=== PATIENT | female | born 1995 | race Caucasian/White ===

== ENCOUNTER → 2018-04-28 16:17 | Outpatient (CLI) | payer OTHER, SELFPAY ==
[2018-04-28 17:48] LABS: CRP 2.93 mg/L (0.0-3.0); Rheumatoid Factor < 10.0 IU/mL (<15)
[2018-04-28 17:52] LABS: Erythrocyte Sedimentation Rate 8 mm/hr (0-20)
[2018-05-01 13:38] LABS: CCP IgG Antibodies 7 units (0-19)
== END ==
PROVIDERS: Family Provider Nurse Practitioner; PCP Nurse Practitioner; Visit Provider Nurse Practitioner
DX: M34.9 Systemic sclerosis, unspecified (principal); M25.50 Pain in unspecified joint
CPT/HCPCS: 36415; 85652; 86140; 86200; 86431

== ENCOUNTER → 2020-09-04 | Outpatient (CLI) | payer OTHER, SELFPAY ==
[2018-12-10 14:04] VITALS: BMI 34.4
[2020-09-07 03:06] LABS: Chlamydia By Nucleic Acid AMP Negative (Negative)
[2020-09-07 12:31] LABS: Gonococcus By Nucleic Acid AMP Negative (Negative)
== END | disposition home or self-care (01) ==
LOC: LABSPEC 16:57
PROVIDERS: Visit Provider Obstetrics & Gynecology
DX: N76.0 Acute vaginitis (principal); Z11.3 Encounter for screening for infections with a predominantly sexual mode of transmission
CPT/HCPCS: 87491; 87591

== ENCOUNTER 2020-10-27 17:10 | Emergency (ER) | payer OTHER, SELFPAY ==
[2018-12-10 14:04] VITALS: BMI 34.4
[2020-10-27 17:13] VITALS: BP 132/95; PULSE 88; RESP 12; TEMP 36.8; O2SAT 94; BMI 35.4
--- NOTE | 2020-10-27 17:20 | EKG12_ITS ---
Test Reason : SYNCOPE Blood Pressure : / mmHG Vent. Rate : 086 BPM Atrial Rate : 086 BPM P-R Int : 168 ms QRS Dur : 088 ms QT Int : 354 ms P-R-T Axes : 046 048 014 degrees QTc Int : 423 ms Normal sinus rhythm Normal ECG Confirmed by EVA BERG, NANCY ([id number]), supervising editor news reel LEOLA BLANCO ([id number]) on 10/31/2020 11:22:05 AM Referred By: /CG Confirmed By:NANCY VELASQUEZ MD
[2020-10-27 17:32] LABS: Absolute Lymphocyte Count 2.87 X10^3/uL (0.83-4.51); Absolute Neutrophil Count 4.3 X10^3/uL (2.0-7.7); Basophil# 0.08 X10^3/uL; Eosinophil# 0.21 X10^3/uL; Eosinophils% 2.5 % (0-5); Hematocrit 43.9 % (37-47); Hemoglobin 15.4 g/dL (12.0-15.0); Lymphocyte # 2.87 X10^3/ul (4.0); Lymphocyte % 34.5 % (19-41); Mean Corp Hgb Conc 35.1 g/dL (32-36); Mean Corpuscular Hgb 35.2 pg (27.0-32.0); Mean Corpuscular Volume 100.2 fL (81-99); Monocyte# 0.87 X10^3/uL; Monocyte% 10.5 % (0-10); NRBC Flagged by Analyzer 0 % (0-5); Neutrophil # 4.26 X10^3/uL (2.7-7.7); Neutrophil % 51.1 % (47-70); Platelet Count 231 K/mm3 (150-450); RBC Distribution Width CV 11.8 % (11.6-14.6); RBC Distribution Width SD 43.8 fl (35.1-43.9); Red Blood Count 4.38 M/mm3 (4.2-5.4); White Blood Count 8.3 K/mm3 (4.4-11.0)
--- NOTE | 2020-10-27 17:41 | CT_ITS ---
STUDY: CT BRAIN WITHOUT CONTRAST REASON FOR EXAM: Female, 25 years old. SYNCOPAL EPISODE @ WORK RADIATION DOSAGE (If Supplied By Facility): CTDIvol = ( 44.99 ) mGy, DLP = ( 779.24 ) mGycm TECHNIQUE: Transaxial CT imaging of the brain was performed without administration of intravenous contrast material. Individualized dose optimization techniques were used for this CT. COMPARISON: No relevant priors. FINDINGS: Normal soft tissue structures. Normal calvarium. Normal size ventricles and extra-axial spaces for the patient''s age. Normal white matter tracts of the cerebral hemispheres. Normal basal ganglia and thalami. Normal brainstem. Normal cerebellum. There is no intracranial hemorrhage. There are no findings of an acute ischemic infarction. Normal visualized paranasal sinuses. CT/Brain/Head without Contrast IMPRESSION: Normal unenhanced CT scan of the brain. Electronically Signed: Jose Dodge MD at 18:10 EST , Service support ,
--- NOTE | 2020-10-27 17:49 | ED.VIS.GEN ---
History of Present Illness Chief Complaint: Syncope Informant: Patient Onset: Today Narrative: Is a 25-year-old female that denies any past medical history presenting after syncopal episode. Patient apparently was walking into work when she passed out. Patient does not remember the event and does not remember driving to work either. She does not remember approximately 15 to 20 minutes prior to the episode. Patient remembers pulling out of a driveway and talking twice her which she states she always does and then does not remember anything after that. Apparently patient was walking into work when she just passed out. She told coworkers that she was feeling faint. Not clear if she hit her head when she fell. Patient currently denies any headache. She states she is feeling fine earlier today and feels fine now. She notes that she has been having some intermittent diarrhea for the past few days. She states she is having about 1 episode of diarrhea a day which she states is abnormal for her she is normally constipated. She denies any black or blood in her stool. She also know she is been having nosebleeds the past few days. She states she is had 7 or so large nosebleeds out of the right nares. She denies any bleeding of her gums when she brushes her teeth. She denies any history of any bleeding problems. She does not get regular menstrual periods because she has an Implanon. She intermittently takes a diet pill that she thinks starts with a Q. no other complaints at this time. Past Medical History - Allergies and Home Meds Allergies/Adverse Reactions: Allergies No Known Allergies Allergy (Verified 10/27/20 17:12) Primary Care Physician: Kirstin Leija DO [Primary Care Provider] - Past Medical History: None Surgical History: noncontributory Lives: Spouse/ Significant Other, With Family Smoking Status: Current every day smoker Review of Systems General: Reports: - - Syncope. Denies: Chills, Fever, Sweats Eyes: Denies: Visual changes - bilaterally, Diplopia ENT: Denies: Rhinorrhea, Sore throat Cardiovascular: Denies: Chest pain, Palpitations Respiratory: Denies: Dyspnea, Cough, Dyspnea on exertion Gastrointestinal: Denies: Abdominal pain, Nausea, Vomiting, Diarrhea, Melena, Hematochezia Genitourinary: Denies: Dysuria, Hematuria, Frequency Musculoskeletal: Denies: Back pain, Extremity Pain Skin: Denies: Rash, Wounds Neurological: Denies: Headache, Weakness, Numbness Physical Exam Vital Signs/Narrative: Vital Signs Temp Pulse Resp BP Pulse Ox 10/27/20 17:13 98.3 F 88 12 132/95 H 94 Inital Vital Signs reviewed: Yes General: Well nourished, Well developed, No Acute Distress Head: Normocephalic, Atraumatic Eyes: Perrl, EOMI ENT: Moist mucous membranes, No rhinorrhea Neck: Supple, Nontender Cardiovascular: Regular rate, Regular rhythm, No murmurs Respiratory: No distress, CTA bilaterally, Chest nontender Abdomen: Soft, Nontender, Nondistended, Normal bowel sounds Back: Nontender, Normal Inspection Extremities: Nontender, No edema Skin: Normal color, No rash Neurological: Alert, Oriented x3, Cranial nerves II-XII grossly intact, Normal Strength, Normal Sensation, Normal Gait, - - Appears to have retrograde amnesia for approximately 20 minutes before this episode. Psychological: Normal affect, Normal Mood Diagnostic/Tx/Re-eval Chest X-Ray - ED: 1 View, Read by ED Physician, Read by Radiologist, No Acute Disease Clinical Impression(s) from Imaging Studies Brain CT 10/27/20 17:41 IMPRESSION: Normal unenhanced CT scan of the brain. Electronically Signed: Jose Dodge MD at 18:10 EST , Service support , Chest X-Ray 10/27/20 17:50 IMPRESSION: Normal x-ray examination of the chest. Electronically Signed: Jose Dodge MD at 18:41 EST , Service support , Laboratory Data 10/27/20 10/27/20 10/27/20 16:56 16:56 17:31 WBC 8.3 RBC 4.38 Hgb 15.4 H Hct 43.9 MCV 100.2 H MCH 35.2 H MCHC 35.1 RDW Std Deviation 43.8 RDW Coeff of Nichelle 11.8 Plt Count 231 MPV 12.0 Immature Gran % (Auto) 0.400 Neut % (Auto) 51.1 Lymph % (Auto) 34.5 [place] % (Auto) 10.5 H Eos % (Auto) 2.5 Baso % (Auto) 1.0 Absolute Neuts (auto) 4.3 Absolute Lymphs (auto) 2.87 Nucleated RBC % 0 Sodium 139 Potassium 3.9 Chloride 108 H Carbon Dioxide 22.0 Anion Gap 9 BUN 8 Creatinine 0.66 Estim Creat Clear Calc 96.62 Est GFR (MDRD) Af Amer 138 Est GFR (MDRD) Non-Af 114 BUN/Creatinine Ratio 12.2 Glucose 95 Calcium 8.7 Troponin I < 0.015 Urine Color Yellow Urine Clarity Clear Urine pH 7.0 Ur Specific Corn 1.005 Urine Protein Negative Urine Glucose (UA) Normal Urine Ketones Negative Urine Occult Blood Negative Urine Nitrite Negative Urine Bilirubin Negative Urine Urobilinogen Normal Ur Leukocyte Esterase Negative Urine RBC 0 SEEN Urine WBC 0 SEEN Ur Squamous Epith Cells 0-5 SEEN Urine Bacteria 0 SEEN Urine Mucus 0 SEEN Urine Test Negative - Rhythm Strip Rhythm Strip: Sinus Rhythm Rate: 86 Ectopy: None - EKG Initial EKG Interpretation: Sinus Rhythm, No Acute Injury Pattern, - - Rated by emergency medicine physician Normal axis Normal intervals Normal ST segments - Medical Decision Making Patient is evaluated for syncopal episode. It occurred when she was walking into work. Patient does not remember it and also does not remember driving to work. She currently has no complaints. She states that she used to get lightheaded when she was anemic during her pregnancies but not had anything since. She notes that she has had some diarrhea over the past few days.Patient's work-up is largely nonspecific. She does have a mildly elevated hemoglobin of 15.4 with a normal CMP. Her troponin is normal. Urinalysis is negative for any signs of infection and urine is negative. I do wonder patient might be slightly hemoconcentrated. Chest x-rays not show an acute process. Patient is PE RC negative. Not suspect PE as a cause of her syncope at this time. Is no obvious source of infection. Patient is monitored on telemetry does not have any arrhythmia. Patient is orthostatics are negative however she does have some slight difficulty focusing her vision when she goes from sitting to standing. Patient is given a liter of IV fluids. On reevaluation she states she feels fine. At this time I do not think an inpatient evaluation believe patient is stable for outpatient follow-up. She is instructed to follow-up with her primary care doctor. Patient is counseled on signs and symptoms requiring return to the emergency room. Patient verbalizes agreement and understand this plan. Patient discharged home in stable and improved condition. ED Disposition - Plan for ED Patient: Disposition: Home or Assisted Living Diagnosis: Syncope and collapse Instructions: ED Fainting, Uncertain Cause Referrals: Kirstin Leija DO [Primary Care Provider] -
--- NOTE | 2020-10-27 17:50 | RAD_ITS ---
STUDY: X-RAY CHEST REASON FOR EXAM: Female, 25 years old. PT HAD SYNCOPAL EPISODE AT WORK. LOWERED TO FLOOR BY COWORKER. REPORTS NOT FEELING RIGHT. NOT REMEMBERING GOING TO WORK. TECHNIQUE: Single AP portable view of the chest. COMPARISON: October 29, 2012. FINDINGS: There are monitoring devices. The lungs are clear and expanded. There is no demonstrated pleural abnormality. Normal size heart. Normal mediastinum and nell. Normal visualized pulmonary arteries. Normal visualized aortic arch and descending thoracic aorta. Normal visualized thoracic spine. Normal visualized ribs, clavicles, and shoulders. There is no demonstrated abnormality of the visualized soft tissue structures of the upper abdomen. RAD/Chest 1 View (Portable) IMPRESSION: Normal x-ray examination of the chest. Electronically Signed: Jose Dodge MD at 18:41 EST , Service support ,
[2020-10-27 17:51] LABS: Bacteria 0 SEEN /hpf (None Seen); Mucous, Urine 0 SEEN /hpf (<or=2+); Red Blood Cells-Urine 0 SEEN /hpf (0-5); White Blood Cells 0 SEEN /hpf (0-5)
[2020-10-27 17:54] LABS: Anion Gap 9 (5-15); BUN 8 mg/dL (7-18); BUN/Creat Ratio 12.2 RATIO (10-20); Calcium,Total 8.7 mg/dL (8.5-10.1); Chloride 108 mmol/L (98-107); Creatinine, Serum 0.66 mg/dL (0.55-1.02); EST Glomerular Filtration Rate 114 mL/min (>60); Est Glom Filt Rate - Afr Amer 138 mL/min (>60); Estimated Creatinine Clearance 96.62 ml/min; Glucose 95 mg/dL (74-106); Potassium 3.9 mmol/L (3.5-5.1); Sodium Level 139 mmol/L (136-145)
[2020-10-27 17:56] LABS: Color, Urine Yellow (Yellow); Glucose, Dipstick Normal (Normal); Ketone-Dipstick Negative (Negative); Leukocyte Esterase-Dipstick Negative /ul (Negative); Nitrite-Dipstick Negative (Negative); Occult Blood-Urine Negative /ul (Negative); Protein-Dipstick Negative (Negative); Specific Gravity, Urine 1.005 (1.002-1.030); Urine Bilirubin Dipstick Negative (Negative); Urine Clarity Clear (Clear); Urine Urobilinogen Normal (Normal)
[2020-10-27 17:58] LABS: Internal QC Validated? YES +Cl - CLEAR BKGD; Pregnancy, Urine Negative Negative
[2020-10-27 18:02] LABS: Squamous Epithelial Cells - UA 0-5 SEEN /hpf (5-10)
[2020-10-27 18:19] VITALS: BP 121/83; BP 123/79; BP 135/83; PULSE 74; PULSE 80; PULSE 90
[2020-10-27] MEDS: 0.9% Normal Saline 1,000 ML 999 ML IV (18:38)
[2020-10-27 19:28] VITALS: BP 115/76; PULSE 82; RESP 21; O2SAT 96
== END 2020-10-27 19:32 | disposition home or self-care (01) ==
PROVIDERS: Emergency Provider Emergency Medicine; PCP Internal Medicine
DX: R55 Syncope and collapse (principal); F17.200 Nicotine dependence, unspecified, uncomplicated
CPT/HCPCS: 70450; 71045; 80048; 81001; 81025; 84484; 85025; 93005; 96360; 99285; J7030

== ENCOUNTER → 2024-06-29 | Outpatient (CLI) | payer OTHER, SELFPAY ==
[2024-06-29 11:13] LABS: Basophil# 0.08 X10^3/uL; Basophil% 0.9 % (0-1); Eosinophil# 0.36 X10^3/uL; Eosinophils% 4.1 % (0-5); Hematocrit 42.5 % (37-47); Hemoglobin 14.5 g/dL (12.0-15.0); Lymphocyte % 20.5 % (19-41); Mean Corp Hgb Conc 34.1 g/dL (32-36); Mean Corpuscular Hgb 35.5 pg (27.0-32.0); Mean Corpuscular Volume 104.2 fL (81-99); Mean Platelet Vol. 10.4 fl (6.2-12.0); Monocyte# 0.53 X10^3/uL; NRBC Flagged by Analyzer 0 % (0-5); Neutrophil # 5.99 X10^3/uL (2.7-7.7); Neutrophil % 68.3 % (47-70); Platelet Count 256 K/mm3 (150-450); RBC Distribution Width CV 12.1 % (11.6-14.6); RBC Distribution Width SD 46.6 fl (35.1-43.9); Red Blood Count 4.08 M/mm3 (4.2-5.4); White Blood Count 8.8 K/mm3 (4.4-11.0)
[2024-06-29 11:47] LABS: Vitamin D,25 Hydroxy 4.8 ng/mL
[2024-06-29 12:00] LABS: AST(SGOT) 37 U/L (15-37); Alanine Aminotransfer ALT/SGPT 31 U/L (13-56); Albumin, Serum 3.7 g/dL (3.2-5.0); Alkaline Phosphatase 80 U/L (45-117); Anion Gap 8 (5-15); BUN 8 mg/dL (7-18); BUN/Creat Ratio 13.4 RATIO (10-20); Calcium,Total 9.2 mg/dL (8.5-10.1); Chloride 108 mmol/L (98-107); EST Glomerular Filtration Rate 125 mL/min (>60); Est Glom Filt Rate - Afr Amer 151 mL/min (>60); Globulin 3.7 g/dL (2.2-4.2); Glucose 93 mg/dL (74-106); Potassium 3.2 mmol/L (3.5-5.1); Protein, Total 7.4 g/dL (6.4-8.2); Sodium Level 138 mmol/L (136-145)
== END | disposition home or self-care (01) ==
LOC: LAB 10:26
PROVIDERS: PCP Internal Medicine; Referring Provider Internal Medicine; Visit Provider Internal Medicine
DX: R25.1 Tremor, unspecified (principal); E55.9 Vitamin D deficiency, unspecified
CPT/HCPCS: 36415; 80053; 82306; 84443; 85025

== ENCOUNTER 2024-07-15 10:58 | Day surgery (SDC) | payer OTHER, SELFPAY ==
[2024-07-15] VITALS (13 sets, daily range): BP systolic 128–162; BP diastolic 82–113; PULSE 72–91; RESP 14–18; TEMP 36.2–36.7; O2SAT 96–100; BMI 29.4
[2024-07-15] MEDS: Lactated Ringers 1,000 ML 15 ML IV (11:47)
[2024-07-15 11:48] LABS: Internal QC Validated? YES +Cl - CLEAR BKGD; Pregnancy, Urine Negative Negative; Record Kit Lot#,Urine Preg 869294
[2024-07-15 11:52] LABS: International Normalized Ratio 1.1; Prothrombin Time (Protime)PT. 13.9 SECONDS (11.7-14.9)
[2024-07-15 11:53] LABS: Partial Thromboplast Time 27.7 Seconds (24.1-36.2)
[2024-07-15] MEDS: Bupivacaine Mpf 0.5% 30 ML VIAL (13:08)
[2024-07-15] MEDS: HYDROcodone Bitartrate/Apap 5/325 Tablet PO (15:08)
== END 2024-07-15 15:29 | disposition home or self-care (01) ==
LOC: SDC 11:01 → AC 11:09
PROVIDERS: Anesthesiology; PCP Internal Medicine; Referring Provider Obstetrics & Gynecology; Visit Provider Obstetrics & Gynecology
PROC: (CPT 58661; principal; 2024-07-15 12:30)
DX: Z30.2 Encounter for sterilization (principal); Z30.46 Encounter for surveillance of implantable subdermal contraceptive; F17.210 Nicotine dependence, cigarettes, uncomplicated; Z87.440 Personal history of urinary (tract) infections
CPT/HCPCS: 58661; 11982; 00840; 81025; 85610; 85730; 88302; 93005; J7120; C1760; J2405

== ENCOUNTER → 2024-07-26 | Outpatient (CLI) | payer OTHER, SELFPAY ==
--- NOTE | 2024-07-26 08:18 | MRI_ITS ---
STUDY: MRI BRAIN WITHOUT CONTRAST REASON FOR EXAM: Female, 29 years old. DIPLOPIA, INVOLUNTARY MOVEMENTS TECHNIQUE: Standardized multiplanar fat and water weighted pulse sequences were obtained. COMPARISON: CT 10/27/2020 FINDINGS: Normal size of the ventricles and extra-axial spaces for the patient''s age. Normal white matter tracts of the supratentorial brain. There is no evidence for recent intracranial ischemia or other cause of cytotoxic edema on diffusion weighted imaging (DWI). Normal T2* images of the brain without demonstrated susceptibility artifact. There is no demonstrated hemosiderin stain. Normal bilateral basal ganglia. Normal thalami. There is no extra-axial fluid accumulation. Normal flow voids within the major intracranial circulation suggesting patency by spin echo criteria. Normal sella turcica, pituitary gland, infundibular stalk, optic chiasm and hypothalamus. Normal tectal plate and pineal gland. Normal midbrain, macho and medulla. Normal cerebellum. Normal basal cisterns. Normal bilateral temporal bones. Normal bilateral internal auditory canals. No demonstrated orbital abnormality, within the constraints of a routine brain study. Normal visualized paranasal sinuses. Normal calvarium and skull base. Normal visualized soft tissue structures. Normal visualized upper cervical spine. MRI/Brain without Contrast IMPRESSION: Normal unenhanced MRI of the brain. Electronically Signed: Ciro Fischer MD at 14:19 EST ,
== END | disposition home or self-care (01) ==
PROVIDERS: PCP Internal Medicine; Referring Provider Internal Medicine; Visit Provider Internal Medicine
DX: R25.9 Unspecified abnormal involuntary movements (principal); H53.2 Diplopia
CPT/HCPCS: 70551